=== PATIENT | male | born 2000 | race Caucasian/White ===

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

== ENCOUNTER 2024-04-24 07:38 | Outpatient (CLI) | payer BC | END 2024-04-24 07:39 | disposition home or self-care (01) | LOC: SCSMRI 07:38 | PROVIDERS: ATTEND Orthopaedic Surgery | DX: M23.91 Unspecified internal derangement of right knee (principal); S83.211A Bucket-handle tear of medial meniscus, current injury, right knee, initial encounter; S83.271A Complex tear of lateral meniscus, current injury, right knee, initial encounter; M25.461 Effusion, right knee; M71.21 Synovial cyst of popliteal space [Baker], right knee; M24.10 Other articular cartilage disorders, unspecified site | CPT/HCPCS: 70210 ==

== ENCOUNTER 2024-05-11 05:53 | Observation (INO) | payer BC ==
[2024-05-11] MEDS ORDERED: Lidocaine 1% MPF 2 ML VIAL ONE (06:04)
[2024-05-11] MEDS ORDERED: CEFAZOLIN 2 GM VIAL ONE (06:04)
[2024-05-11] MEDS ORDERED: fentaNYL 50 mcg/mL 1 mL Vial ONE ×2 (06:46→07:48)
[2024-05-11] MEDS ORDERED: Bupivacaine PF 0.5% 30 ML VIAL ONE (06:47)
[2024-05-11] MEDS ORDERED: Midazolam HCl 2 mg/2 ml Vial ONE ×2 (06:47→07:48)
[2024-05-11] MEDS ORDERED: Bupivacaine HCl 0.5%/Epinephrine 1:200,000/PF 30 ml Vial ONE (07:25)
[2024-05-11] MEDS ORDERED: Vancomycin 1 GM/200 ML (FROZEN) BAG ONE (07:27)
[2024-05-11] MEDS ORDERED: PROPOFOL 20 ML ONE (07:47)
[2024-05-11] MEDS ORDERED: fentaNYL 50 mcg/mL 1 mL Vial SLOW IVP PRN (08:00)
[2024-05-11] MEDS ORDERED: Promethazine HCl 25 MG/ML VIAL IM PRN (08:00)
[2024-05-11] MEDS ORDERED: HYDROcodone/Acetaminophen 10/325 mg Tablet PO PRN (08:00)
[2024-05-11] MEDS ORDERED: Zolpidem Tartrate 5 MG TAB PO PRN (08:00)
[2024-05-11] MEDS ORDERED: Ropivacaine 0.2% 550 ML 550 ML NERVE BLCK SCH (08:00)
[2024-05-11] MEDS ORDERED: Lidocaine 1% PF 5 ML VIAL ONE (09:29)
[2024-05-11] MEDS ORDERED: Dexamethasone 4 mg/ml Vial ONE (09:29)
[2024-05-11] MEDS ORDERED: Ondansetron PF 4 MG/2 ML Vial ONE (09:29)
[2024-05-11] MEDS ORDERED: traMADol HCl 50 MG TAB PO PRN (10:39)
[2024-05-11] MEDS ORDERED: Methocarbamol 500 MG TAB PO PRN (10:39)
[2024-05-11] MEDS ORDERED: Bisacodyl 10 MG SUPP PR PRN (10:39)
[2024-05-11] MEDS ORDERED: Milk Of Magnesia 30 ML UDCUP PO PRN (10:39)
[2024-05-11] MEDS ORDERED: diphenhydrAMINE 50 MG CAP PO PRN (10:39)
[2024-05-11] MEDS ORDERED: HYDROcodone/Acetaminophen 7.5/325 mg Tablet PO PRN ×2 (10:39)
[2024-05-11] MEDS ORDERED: Acetaminophen 500 MG TAB PO PRN (10:39)
[2024-05-11] MEDS ORDERED: Meperidine HCl/PF 25 MG (1 mL) VIAL ONE (10:45)
[2024-05-11] MEDS ORDERED: fentaNYL PF 100 MCG/2 ML SYRINGE ONE (10:58)
[2024-05-11] MEDS ORDERED: Ketorolac Tromethamine 30 MG (1 mL) VIAL ONE (11:31)
[2024-05-11] MEDS: Ketorolac Tromethamine 30 MG (1 mL) VIAL IVP SCH (11:32)
[2024-05-11] MEDS ORDERED: CEFAZOLIN 2 GM in Sodium Chloride 0.9% 100 ML IVPB SCH (14:00)
[2024-05-11 14:10] VITALS: BMI 23.6
[2024-05-11] MEDS: HYDROcodone/Acetaminophen 10/325 mg Tablet PO PRN (16:41)
[2024-05-11] MEDS: CEFAZOLIN 2 GM in Sodium Chloride 0.9% 100 ML IVPB SCH (16:43)
[2024-05-11] MEDS: Ondansetron PF 4 MG/2 ML Vial IVP PRN (18:22)
[2024-05-11] MEDS: Dextrose 5 %-0.45 % NaCl 1,000 ML IV SCH (19:31)
[2024-05-11] MEDS: Vancomycin 1 GM in Premix 1 BAG IVPB SCH (21:15)
[2024-05-11] MEDS: Famotidine 20 MG TAB PO SCH (21:16)
[2024-05-12 08:30] VITALS: BP 121/67; TEMP 98.5
[2024-05-13] MEDS ORDERED: FLU (Fluarix Triv) TS24-25(6MOS UP)/PF 45 MCG/0.5 ML Syringe IM ONE (09:00)
== END 2024-05-12 11:44 | disposition home or self-care (01) ==
LOC: SDC 05:53 → SURG A 10:39
PROVIDERS: ADMIT Orthopaedic Surgery; ATTEND Orthopaedic Surgery
PROC: 0MRN4KZ Replacement of Right Knee Bursa and Ligament with Nonautologous Tissue Substitute, Percutaneous Endoscopic Approach (ICD-10-PCS; principal; 2024-05-12)
PROC: 0SQC4ZZ Repair Right Knee Joint, Percutaneous Endoscopic Approach (ICD-10-PCS; 2024-05-12)
PROC: 0LS30ZZ Reposition Right Upper Arm Tendon, Open Approach (ICD-10-PCS; 2024-05-12)
PROC: 3E0T3BZ Introduction of Anesthetic Agent into Peripheral Nerves and Plexi, Percutaneous Approach (ICD-10-PCS; 2024-05-12)
DX: S83.511A Sprain of anterior cruciate ligament of right knee, initial encounter (principal); S83.211A Bucket-handle tear of medial meniscus, current injury, right knee, initial encounter; M23.91 Unspecified internal derangement of right knee; Z90.89 Acquired absence of other organs; Z79.899 Other long term (current) drug therapy; Z79.1 Long term (current) use of non-steroidal anti-inflammatories (NSAID); X58.XXXA Exposure to other specified factors, initial encounter; Y93.62 Activity, american flag or touch football
CPT/HCPCS: A4306; C1713; C1889; J0665; J1100; J1885; J2175; J2250; J2405; J2704; J2795; J3010; J3370